=== PATIENT | female | born 2005 | race African-American/Black ===

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

== ENCOUNTER 2024-01-08 01:14 | Emergency (ER) | payer OTHER, MEDICAID ==
[~2024-01-08] VITALS: Ht 170.2 cm; Wt 95.0 kg
[2024-01-08 01:20] VITALS: BP 144/81; PULSE 78; RESP 16; TEMP 98.4; O2SAT 98
== END 2024-01-08 01:53 ==
LOC: ER 01:41
DX: R07.89 Other chest pain (principal); R00.2 Palpitations; I10 Essential (primary) hypertension
CPT/HCPCS: 93005; 99283